=== PATIENT | male | born 1975 ===

== ENCOUNTER 2017-02-15 16:13 | Emergency (ER) | payer BC ==
[2017-02-15 16:34] VITALS: RESP 18
[2017-02-15] MEDS ORDERED: Naproxen 550 mg Tab PO STA (17:23)
[2017-02-15] MEDS ORDERED: Naproxen 550 mg Tab PO ONE (17:48)
--- NOTE | 2017-02-15 17:52 | C.PDOC ---
History Of Present Illness 41 y/o male presents to ED for evaluation of non-radiating left hip pain since yesterday. Notes taking Advil without significant relief. Notes that his job requires him to stand for long time so when he went to work, pain worsened. Denies any fall, injury, trauma, change in sensation, or fever. No testicular pain, no abdominal pain, no hernia. Time Seen by Provider: 02/15/17 17:09 Chief Complaint (Nursing): Hip Pain History Per: Patient, Food Service Team Member History/Exam Limitations: language barrier Onset/Duration Of Symptoms: Days (4) Current Symptoms Are (Timing): Still Present Recent travel outside of the [place]: No Additional History Per: Patient Past Medical History Reviewed: Historical Data, Nursing Documentation, Vital Signs Vital Signs: Last Vital Signs Temp 97.7 F 02/15/17 18:29 Pulse 60 02/15/17 18:29 Resp 18 02/15/17 18:29 BP 108/71 02/15/17 18:29 Pulse Ox 97 02/15/17 18:29 Family History: States: Unknown Family Hx - Social History Hx Alcohol Use: No Hx Substance Use: No Review Of Systems Except As Marked, All Systems Reviewed And Found Negative. Constitutional: Negative for: Fever, Chills Musculoskeletal: Positive for: Other (left hip pain) Skin: Negative for: Rash, Bruising Neurological: Negative for: Weakness, Numbness Physical Exam - Physical Exam Appears: Non-toxic, No Acute Distress Skin: Normal Color, Warm, Dry, No Rash Head: Atraumatic, Normacephalic Eye(s): bilateral: Normal Inspection, EOMI Nose: Normal Oral Mucosa: Moist Neck: Supple Chest: Symmetrical Respiratory: No Accessory Muscle Use Gastrointestinal/Abdominal: Soft, No Tenderness Extremity: Normal ROM, Tenderness (point tenderness to lateral aspect of left hip), No Pedal Edema, No Calf Tenderness, Capillary Refill (<2 sec.), No Deformity, No Swelling Extremity: Bilateral: Atraumatic, Normal Color And Temperature, Normal ROM Neurological/Psych: Oriented x3, Normal Speech, Normal Motor, Normal Sensation Gait: Steady ED Course And Treatment O2 Sat by Pulse Oximetry: 98 (on RA) Pulse Ox Interpretation: Normal - Other Rad Hip x-ray X-Ray: Interpreted by Me, Viewed By Me, Read By Radiologist Interpretation: PROCEDURE: Left Hip X-ray Radiographs. HISTORY: pain. COMPARISON: None. FINDINGS: BONES: No evidence of acute fracture or. JOINTS : Mild osteoarthritic changes. SOFT TISSUES: Normal. OTHER FINDINGS: None. IMPRESSION: No evidence of acute fracture. Mild osteoarthritis. Progress Note: Hip x-ray ordered and reviewed. Pt was given Naproxen for pain. On reassessment, pt reports feeling better. No acute distress. Pt is being discharged home with instructions to follow up with PMD in 1-2 days for further evaluation. Disposition - Disposition Disposition: HOME/ ROUTINE Disposition Time: 18:17 Condition: STABLE Additional Instructions: Vaya a angelo mdico o la clnica en 2-5 fisher sin falta, para mas evaluacin. [place] los medicamentos mika indicado. Volver a la sonu de emergencia en cualquier momento si los sntomas persisten o empeoran. 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 - Scribe Statement The provider has reviewed the documentation as recorded by the Elíasibhenrik Espino All medical record entries made by the Scribe were at my direction and personally dictated by me. I have reviewed the chart and agree that the record accurately reflects my personal performance of the history, physical exam, medical decision making, and the department course for this patient. I have also personally directed, reviewed, and agree with the discharge instructions and disposition.
--- NOTE | 2017-02-15 18:05 | RAD ---
PROCEDURE: Left Hip X-ray Radiographs. HISTORY: pain COMPARISON: None. FINDINGS: BONES: No evidence of acute fracture or. JOINTS: Mild osteoarthritic changes. SOFT TISSUES: Normal. OTHER FINDINGS: None. IMPRESSION: No evidence of acute fracture. Mild osteoarthritis.
[2017-02-15 18:30] VITALS: BP 108/71; PULSE 60; TEMP 97.7
[2017-02-15 19:42] VITALS: O2SAT 98
== END 2017-02-15 18:40 | disposition home or self-care (01) ==
LOC: C.ER 16:13
DX: M25.552 Pain in left hip (principal)

== ENCOUNTER 2017-07-15 14:04 | Emergency (ER) | payer BC ==
[2017-07-15 14:24] VITALS: BP 108/68; PULSE 76; RESP 16; TEMP 97.6; O2SAT 99
--- NOTE | 2017-07-15 15:39 | C.PDOC ---
History Of Present Illness 41 yr old male presents to the ER with complaints of left leg pain for the past 1 week. Patient states the pain is localized to the back of the leg and increases with walking and while going up and down the stairs. Denies trauma, fall, back pain, foot pain, weakness or numbness. Time Seen by Provider: 07/15/17 14:26 Chief Complaint (Nursing): Lower Extremity Problem/Injury History Per: Patient History/Exam Limitations: no limitations Onset/Duration Of Symptoms: Days (1 week) Current Symptoms Are (Timing): Still Present Past Medical History Reviewed: Historical Data, Nursing Documentation, Vital Signs Vital Signs: Last Vital Signs Temp 97.6 F 07/15/17 14:22 Pulse 76 07/15/17 14:22 Resp 16 07/15/17 14:22 BP 108/68 07/15/17 14:22 Pulse Ox 99 07/15/17 15:40 Family History: States: No Known Family Hx - Social History Hx Alcohol Use: No Hx Substance Use: No Review Of Systems Except As Marked, All Systems Reviewed And Found Negative. Musculoskeletal: Positive for: Leg Pain (left leg). Negative for: Back Pain, Foot Pain Neurological: Negative for: Weakness, Numbness Physical Exam - Physical Exam Appears: Non-toxic, No Acute Distress Skin: Warm, Dry, No Rash Oral Mucosa: Moist Respiratory: Normal Breath Sounds, No Rales, No Rhonchi, No Stridor, No Wheezing Back: No CVA Tenderness, Straight Leg Raising (left leg) Extremity: Normal ROM, No Swelling Neurological/Psych: Oriented x3, Normal Speech, Normal Motor, Normal Sensation Gait: Steady ED Course And Treatment O2 Sat by Pulse Oximetry: 99 (RA) Pulse Ox Interpretation: Normal Disposition - Disposition Referrals: [facility] [Outside] [facility] [Outside] Disposition: HOME/ ROUTINE Disposition Time: 14:45 Condition: GOOD Additional Instructions: Thank you for letting us take care of you today. The emergency medical care you received today was directed at your acute symptoms. If you were prescribed any medication, please fill it and take as directed. It may take several days for your symptoms to resolve. Return to the Emergency Department if your symptoms worsen, do not improve, or if you have any other problems. Please contact your doctor or call one of the physicians/clinics you have been referred to that are listed on the Patient Visit Information form that is included in your discharge packet. Bring any paperwork you were given at discharge with you along with any medications you are taking to your follow up visit. Our treatment cannot replace ongoing medical care by a primary care provider (PCP) outside of the emergency department. Thank you for allowing the [facility] team to be part of your care today. Follow up with the clinic in 3-4 days for re-evaluation and further management. Karma por dejarnos atenderlo hoy. La atencin mdica de emergencia que recibi hoy estaba dirigida a soila sntomas agudos. Si le prescribieron algn medicamento, llnelo y tome segn las indicaciones. Soila sntomas pueden tardar varios fisher en resolverse. Regrese al Departamento de Emergencia si soila s ntomas empeoran, no mejoran o si tiene algn otro problema. Comunquese con angelo mdico o llame a carlos de los mdicos / clnicas a los que lanza sido referido que figura en el formulario de Informacin de visita del paciente que se incluye en angelo paquete de kassi. Traiga todos los documentos que recibi al momento del kassi junto con los medicamentos que est tomando en angelo visita de seguimiento. Nuestro tratamiento no puede reemplazar la atencin mdica en curso por parte de un proveedor de atencin primaria (PCP) fuera del departamento de emergencias. Karma por permitir que el equipo de [facility] sea parte de angelo cuidado hoy. Miranda un seguimiento con la clnica en 3-4 fisher para sulma nueva evaluacin y ms administracin. Prescriptions: Cyclobenzaprine [Cyclobenzaprine HCl] 10 mg PO Q8 PRN #20 tab PRN Reason: Muscle Spasm Ibuprofen [Motrin] 600 mg PO Q6 PRN #20 tab PRN Reason: Pain, Moderate (4-7) Instructions: Musculoskeletal Pain (ED) Forms: Gen Discharge Inst Ukrainian Print Language: ZAMBIAN - Clinical Impression Clinical Impression: Leg pain - Scribe Statement The provider has reviewed the documentation as recorded by the Elíasibe Anabelle Parsons Provider Attestation: All medical record entries made by the Elíasibe were at my direction and personally dictated by me. I have reviewed the chart and agree that the record accurately reflects my personal performance of the history, physical exam, medical decision making, and the department course for this patient. I have also personally directed, reviewed, and agree with the discharge instructions and disposition.
== END 2017-07-15 15:00 | disposition home or self-care (01) ==
LOC: C.ER 14:04
DX: M79.605 Pain in left leg (principal)